=== PATIENT | female | born 1935 | race Caucasian/White ===

== ENCOUNTER → 2019-03-14 | Outpatient (CLI) | payer OTHER ==
[~2019-03-14] VITALS: Ht 177.8 cm; Wt 81.6 kg
[~2019-03-14] MED LIST: ASPIR 8181 MG PO; MOBIC15 MG PO; PRINIVIL10 MG PO; ZOCOR20 MG PO
--- NOTE | ~2019-03-14 | P ---
[facility] [place] [address] PROCEDURE REPORT Name: TRUPTIARNALDO A Room #: REG [facility]#: [id number] Admission: 03/14/19 ������������������ Attend Phys: Dave Bruno MD Discharge: ������������������ Date of : 39 Report #: [id number] THIS REPORT FOR: //name// CC: Dave Bruno Physician staff ADRIAN Aviles DATE OF SERVICE: 03/14/2019 OUTPATIENT COLONOSCOPY REPORT BRIEF HISTORY: The patient is an 83-year-old woman for high risk screening colonoscopy due to history of colon polyps. PREOPERATIVE DIAGNOSIS: High risk screening colonoscopy. POSTOPERATIVE DIAGNOSES: 1. Multiple colon polyps. 2. Moderate sigmoid diverticulosis coli. MEDICATIONS: Deep sedation with propofol per anesthesia. SPECIMENS: 1. Mid ascending colon polyp. 2. Polyp, hepatic flexure. 3. Polyp at 40 cm. ESTIMATED BLOOD LOSS: 3 mL. PROCEDURE: Colonoscopy to cecum and terminal ileum with snare polypectomy and biopsy. FINDINGS: Prior to propofol sedation, procedure of colonoscopy discussed with the patient as well as potential risks and its complications. She indicates she understands and desires to proceed. DESCRIPTION OF PROCEDURE: With the patient in left lateral decubitus position, digital examination was completed, which revealed no abnormalities. Subsequently, the Olympus video colonoscope was introduced in the rectum, advanced under direct vision to the cecum. This was done with minimal difficulty. The cecum was identified by the ileocecal valve and the appendiceal orifice. I was able to visualize the distal segment of the terminal ileum, which was inspected and noted to be unremarkable. At that point, the scope was slowly withdrawn and careful circumferential views were obtained including retroflexion of the scope in the rectum. Upon slow withdrawal of the scope, the [facility] [address] [place] [address] PROCEDURE REPORT Name: ARNALDO LYLES Room #: REG [facility]#: [id number] Admission: 03/14/19 ������������������ Attend Phys: Dave Bruno MD Discharge: ������������������ Date of : 39 Report #: [id number] prep was excellent. The mucosa was within normal limits, normal vascular pattern, normal light reflex. As we withdrew the scope, she had normal-appearing mucosa, but in the mid ascending colon, a diminutive polyp was seen and removed with biopsy forceps. Scope was further withdrawn and another diminutive polyp was identified and removed with biopsy forceps at the hepatic flexure. As we withdrew the scope, the mucosa remained normal. However, in the very proximal sigmoid colon at 40 cm, a 5-mm sessile polyp was seen and removed by cold snare polypectomy and recovered. In addition, there was noted to be moderately severe diverticular disease without endoscopic evidence of diverticulitis. The scope was withdrawn in the rectum and no abnormalities were seen. Upon retroflexion, no abnormalities were seen. The scope was withdrawn. The patient tolerated the procedure well. CONDITION OF THE PATIENT UPON DISCHARGE: Following procedure, the patient was drowsy, aroused, conversant and will be discharged home when fully ambulatory. INSTRUCTIONS TO THE PATIENT AND FAMILY AT THE TIME OF DISCHARGE: We will follow up on the pathology of the polyps. If all 3 polyps are adenomatous, I would suggest followup colonoscopy in 3 years provided her health is good and there remains good longevity for this patient. However, if health is poor in 3 years, it may be reasonable to forego followup colonoscopy. Otherwise, if only 1 or 2 are adenomatous or none are, followup colonoscopy would likely be of minimal benefit to this patient. She would return to the care of Dr. Adrian Aviles and return to see me as needed. Last colonoscopy was 5 years ago. Withdrawal time from the cecum was 16 minutes 15 seconds. ��������������������������������������������� ���������������������������������������� By: ��������������������������������������������� 0819 2301 Dave Bruno MD /nt
--- NOTE | 2019-03-17 14:06 | PATH ---
[facility] [address] [place] [address] PATHOLOGY RPT PROCEDURE Name: KATEY TORO Dawit Room #: REG [facility].#: [id number] ������������������ Admission: 03/14/19 ������������������ Date of : 39 Discharge: Report #: [id number] Path Case #: [id number] [facility] Accession Number: [id number] . 01 Material submitted: . PART A: colon - POLYP AT MID-ASCENDING COLON. Modifiers: mid, ascending PART B: hepatic flexure - POLYP AT HEPATIC FLEXURE PART C: colon - POLYP AT 40CM . 01 Clinical history: . History of polyps, diverticulosis. . 02 Diagnosis: A. Polyp, at mid ascending colon, endoscopic biopsy: - Tubular adenoma. - Negative for high-grade dysplasia. . B. Polyp, at hepatic flexure, endoscopic biopsy: - Tubular adenoma. - Negative for high-grade dysplasia. . C. Polyp, at 40 cm, endoscopic biopsy: - Tubular adenoma. - Negative for high-grade dysplasia. . (IUV:dimitri; 03/17/2019) [facility] 03/17/2019 1205 Local . 02 Electronically signed: . Gertrudis Lau MD, Pathologist NPI- [id number] . 01 Gross description: . A. Received in formalin labeled "Katey Toro, polyp at mid ascending colon" is a 0.3 x 0.3 x 0.2 cm fragment of lewis-brown mucosa. The specimen is submitted in A1. . B. Received in formalin labeled "Katey Toro, polyp at hepatic flexure" is a 0.5 x 0.3 x 0.1 cm fragment of lewis-brown mucosa. The specimen is submitted in B1. . C. Received in formalin labeled "Katey Toro, polyp at 40 cm" is a 1.0 x 0.4 x 0.2 cm fragment of lewis-brown mucosa. The specimen is submitted in C1. ([facility]; 03/15/2019) [facility] 03/15/2019 135 Local . 02 Pathologist provided ICD-10: [address] [address] PATHOLOGY RPT PROCEDURE Name: KATEY TORO Room #: REG CLI [facility]#: [id number] ������������������ Admission: 03/14/19 ������������������ Date of : 39 Discharge: Report #: [id number] Path Case #: [id number] D12.2, D12.3, D12.6 . 02 CPT . 533416, 120518, [id number] Specimen Comment: A courtesy copy of this report has been sent to Specimen Comment: [phone], . Specimen Comment: Report sent to / DR KINNEY Performed at: [address], [place] [id number] MD Soy Triana MD Phone: [phone] Performed at: [address] [id number] MD Gertrudis Lau MD Phone: [phone]
== END | disposition home or self-care (01) ==
LOC: GI 06:30
DX: Z12.11 Encounter for screening for malignant neoplasm of colon (principal); Z86.010 Personal history of colon polyps; D12.2 Benign neoplasm of ascending colon; D12.3 Benign neoplasm of transverse colon; D12.5 Benign neoplasm of sigmoid colon; K57.30 Diverticulosis of large intestine without perforation or abscess without bleeding; I10 Essential (primary) hypertension; E78.5 Hyperlipidemia, unspecified; Z87.891 Personal history of nicotine dependence; Z88.0 Allergy status to penicillin; Z79.82 Long term (current) use of aspirin; Z79.899 Other long term (current) drug therapy; Z98.890 Other specified postprocedural states
CPT/HCPCS: 62110; 62900